=== PATIENT | male | born 1955 | race Caucasian/White ===

== ENCOUNTER 2018-12-10 08:49 | Day surgery (SDC) | payer BC ==
[~2018-12-10 08:49] MED LIST: CELECOXIB 100 MG CAPSULE PO ONE; FAMOTIDINE 20MG TABLET PO ONE; GENTAMICIN SULFATE 560 MG in 0.9 % SODIUM CHLORIDE 100ML 100 ML IV ONE; MECLIZINE 25 MG TABLET PO ONE; METOCLOPRAMIDE 10 MG TABLET PO ONE; VANCOMYCIN 1GM/200ML PREMIX 1 GM/200 ML PIGGYBACK IVPB ONE
[2018-12-10] MEDS ORDERED: ROPIVACAINE HCL (NAROPIN) /PF 5MG/ML 20ML VIAL IV ONE (08:50)
[2018-12-10] MEDS ORDERED: DEXAMETHASONE 4 MG/ML 1ML VIAL IVP ONE (08:50)
[2018-12-10] MEDS ORDERED: PROPOFOL 10 MG/ML VIAL IV ONE (08:50)
[2018-12-10] MEDS ORDERED: LIDOCAINE 2% MDV (20MG/ML) 20ML VIAL IV ONE (08:50)
[2018-12-10] MEDS ORDERED: MIDAZOLAM HCL 2MG/2ML VIAL IV ONE (08:50)
[2018-12-10] MEDS ORDERED: GENTAMICIN SULFATE 560 MG in 0.9 % SODIUM CHLORIDE 100ML 100 ML IV ONE (09:30)
[2018-12-10] MEDS ORDERED: RINGERS SOLUTION,LACTATED 1,000 ML IV ONE ×2 (09:35→12:47)
[2018-12-10 09:47] LABS: ABO GROUP A; ANTIBODY SCREEN NEGATIVE (NEGATIVE); RH TYPE POSITIVE
[2018-12-10] MEDS ORDERED: BUPIVACAINE 0.5% W/EPI MPF 30 ML VIAL SQ ONE (11:36)
[2018-12-10] MEDS ORDERED: TRANEXAMIC ACID 1,000 MG/10 ML ML IU ONE (11:36)
[2018-12-10] MEDS ORDERED: TRANEXAMIC ACID 1,000 MG/10 ML ML IV ONE (11:36)
[2018-12-10] MEDS ORDERED: DIPHENHYDRAMINE HCL 25 MG CAPSULE PO PRN (13:18)
[2018-12-10] MEDS ORDERED: ACETAMINOPHEN W/ CODEINE 300MG/60MG TABLET PO PRN ×2 (13:18)
[2018-12-10] MEDS ORDERED: AL HYDROX/MAG HYDROX 30ML UD PO PRN (13:18)
[2018-12-10] MEDS ORDERED: NALOXONE 0.4 MG/1 ML VIAL IVP PRN (13:18)
[2018-12-10] MEDS ORDERED: KETOROLAC 30 MG/ML VIAL IVP PRN (13:18)
[2018-12-10] MEDS ORDERED: HYDROCODONE/APAP 10/325 TABLET PO PRN (13:18)
[2018-12-10] MEDS ORDERED: HYDROMORPHONE HCL 2 MG/ML VIAL IM PRN (13:18)
[2018-12-10] MEDS ORDERED: ONDANSETRON HCL IV 4 MG/2 ML VIAL IVP PRN (13:18)
[2018-12-10] MEDS ORDERED: BISACODYL 10 MG SUPP RC PRN (13:18)
[2018-12-10] MEDS ORDERED: TRAMADOL HCL 50 MG TABLET PO PRN (13:18)
[2018-12-10] MEDS ORDERED: ACETAMINOPHEN 325 MG TAB PO PRN (13:18)
[2018-12-10] MEDS ORDERED: ZOLPIDEM TARTRATE 5 MG TABLET PO PRN (13:18)
[2018-12-10] MEDS ORDERED: MAGNESIUM HYDROXIDE 30 ML UDC PO PRN (13:18)
[2018-12-10] MEDS ORDERED: PANTOPRAZOLE SODIUM 40 MG TABLET PO PRN (14:29)
[2018-12-10] MEDS: POTASSIUM CHLORIDE/D5-0.9%NACL 20 MEQ/1,000 ML BAG IV SCH ×2 (14:59→22:30)
[2018-12-10] MEDS: HYDROCODONE/APAP 10/325 TABLET PO PRN ×2 (16:37→21:16)
--- NOTE | 2018-12-10 16:41 | Rehab Evaluation ---
Patient Information - Patient Information Diagnosis: L knee DJD Ordered Treatment: PT Evaluate and Treat Status: Initial Evaluation Surgery: Yes (L TKA) Date of Surgery: 12/10/18 Past Medical/Surgical Hx: PAST MEDICAL/SURGICAL HISTORY Past Surgical History BILAT CATARACT EXTRACTION HEMORRHOIDECTOMY X'S 3 ORIF RIGHT ANKLE C SCOPES PMH - Respiratory Hx Respiratory Disorders Yes Hx Sleep Apnea Yes Hx of CPAP Yes PMH - Cardiovascular Hx Cardiovascular Disorders Yes Hx Chest Pain Yes: HX OF NOTHING RECENT HAS ALWAYS BEEN DX'D GERD Hx Hypertension Yes: HX OF NO MEDS NOW Exercise Tolerance Fair PMH - Neuro Hx Neurological Disorders Yes Hx Headaches Yes Comment: DOUBLE VISION SINCE CATARACT REMOVAL CT SCAN PMH - GI Hx Gastrointestinal Disorders Yes Hx Gastroesophageal Reflux Yes: TAKES PRILOSEC OCCASS. Hx Liver Disease Yes: FATTY LIVER PMH - Hx Genitourinary Disorders Yes Hx Kidney Stones Yes: HX OF PMH - Endocrine Hx Endocrine Disorders Yes Hx Diabetes Yes: DX'D 2016 Hx of NIDDM Yes Comment: A1C 6 PMH - Musculoskeletal Hx Musculoskeletal Disorders Yes Hx Arthritis Yes: LEFT KNEE PMH - Psych Hx Psychiatric Problems Yes Hx Anxiety Yes Hx Depression Yes PMH - Hematology/Oncology Hx Hematology/Oncology No Disorders Premorbid Status: Detail (The patient was independent with mobility prior to surgery.) Social History: Detail (The patient lives with spouse in a two story house with 12 steps with one handrail in between floors.The patient's bedroom and bathroom are on the second floor. Two steps without a handrail are present in the garage house enterance. The bathroom is equipped with : walk in shower with a bench, elevated toilet. No grab bars are present in the bathroom. The patient has a walker with wheels, crutches and a single point cane.) Precautions: [place], Fall, Other (WBAT on the L LE) - Time With Patient Total Time Spent With Patient (Min): 30 Treatment Procedures: Detail (Initial Evaluation, gait training) Subjective Information - Subjective Information Per Patient (The patient had no complaints of knee pain but did complain of pressure in abdominal region.) Objective Data - Mental Status Patient Orientation: Oriented x3 - Visual Perception Appears within normal limits for therapeutic activities - ROM Not within normal limits (The patient's L knee AROM was limited s/p surgery. All other LE AROM was WNL.) - Strength/Tone Not within normal limits (The patient's LE strength was not tested s/p surgery however strength was functional.) - Bed Mobility Independent (The patient was independent with supine to and from sit transfer.) - Transfers Independent (The patient was independent with sit to and from stand transfer) - Balance Balance Sitting: Good Balance Standing: Good - Sensation Intact - Gait Detail (The patient ambulated with front wheeled walker a distance of 208 feet x 1 WBAT on the L LE with CG/supervision safety due to initial unsteadiness with ambulation.) Therapy Assessment - Therapy Assessment Detail (The patient was independent with bed mobility, transfers. The patient required CG initially with ambulation then supervision after the patient ambulated 100 feet. The patient's walker was readjusted due to slight slate of front walker legs which may have contributed to initial unsteadiness with ambulation.) Problem List - Problem List Physical Therapy Problem List: Detail (Decreased L knee AROM and L LE strength) Goals - Goals Physical Therapy Goals: 1) The patient will ambulate independently household distances with front wheeled walker WBAT on the L LE. 2) The patient will ambulate on stairs with supervision for safety and using proper technique. 3) The patient will be independent with TKA HEP. Prognosis - Prognosis Good Plan - Plan Physical Therapy Plan: PT 1-2 sessions for gait training on levels and stairs and instruction in TKA HEP.
[2018-12-10] MEDS: DOCUSATE SODIUM 100 MG CAPSULE PO SCH (21:16)
[2018-12-10] MEDS: VANCOMYCIN 1GM/200ML PREMIX 1 GM/200 ML PIGGYBACK IVPB SCH (21:17)
[2018-12-11] MEDS: POTASSIUM CHLORIDE/D5-0.9%NACL 20 MEQ/1,000 ML BAG IV SCH (06:19)
[2018-12-11 07:07] LABS: HEMATOCRIT 42.9 % (42.0-52.0)
[2018-12-11 07:20] LABS: BLOOD UREA NITROGEN 16 mg/dL (8-23); CREATININE 0.7 mg/dL (0.7-1.2); EST GLOMERULAR FILTRATION RATE > 60 mL/min; GLUCOSE,RANDOM 136 mg/dL (74-109)
--- NOTE | 2018-12-11 07:58 | Physical Therapy Tx Note ---
Physical Therapy Tx Note - Treatment Note Tolerated: Good Total Time Spent With Patient: 25 Physical Therapy Tx Note: Detail (The patient was in bed when PT arrived. The patient ambulated with front wheeled walker a distance of 500 feet independently WBAT on the L LE. The patient ambulated on flights of 3 stairs, 7 stairs and 3 stairs using proper technique with use of railing and std. cane independently. The patient completed TKA HEP which included: seated heel slides, supine heel slides, ankle pumps, SLR, quad sets, gluteal sets and hamstring sets. The patient was left in bed with call light within reach. The patient has met all inpt. PT goals and is discharged from inpt. PT.) Physical Therapy Problem List: Detail (Decreased L knee AROM and L LE strength) Physical Therapy Goals: 1) The patient will ambulate independently household distances with front wheeled walker WBAT on the L LE. (Goal Met). 2) The patient will ambulate on stairs with supervision for safety and using proper technique.(Goal Met). 3) The patient will be independent with TKA HEP. (Goal Met) Physical Therapy Plan: The patient is discharged from inpt. PT. The pt. will continue with Home PT.
[2018-12-11] MEDS: DOCUSATE SODIUM 100 MG CAPSULE PO SCH (09:40)
[2018-12-11] MEDS: VANCOMYCIN 1GM/200ML PREMIX 1 GM/200 ML PIGGYBACK IVPB SCH (09:45)
[2018-12-11] MEDS ORDERED: DULOXETINE HCL 30 MG CAPSULE.DR PO SCH (10:00)
[2018-12-11] MEDS ORDERED: ATORVASTATIN 20 MG TABLET PO SCH (10:00)
[2018-12-11] MEDS ORDERED: METFORMIN 500 MG TABLET PO SCH (10:00)
[2018-12-11] MEDS ORDERED: FERROUS SULFATE 325 MG TAB PO SCH (10:00)
[2018-12-11] MEDS ORDERED: RIVAROXABAN 10 MG TABLET PO SCH (10:00)
--- NOTE | 2018-12-11 10:47 | Rehab Evaluation ---
Patient Information - Patient Information Diagnosis: L knee DJD Ordered Treatment: OT Evaluate and Treat Status: Initial Evaluation Surgery: Yes (L TKA) Date of Surgery: 12/10/18 Past Medical/Surgical Hx: PAST MEDICAL/SURGICAL HISTORY Past Surgical History BILAT CATARACT EXTRACTION HEMORRHOIDECTOMY X'S 3 ORIF RIGHT ANKLE C SCOPES PMH - Respiratory Hx Respiratory Disorders Yes Hx Sleep Apnea Yes Hx of CPAP Yes PMH - Cardiovascular Hx Cardiovascular Disorders Yes Hx Chest Pain Yes: HX OF NOTHING RECENT HAS ALWAYS BEEN DX'D GERD Hx Hypertension Yes: HX OF NO MEDS NOW Exercise Tolerance Fair PMH - Neuro Hx Neurological Disorders Yes Hx Headaches Yes Comment: DOUBLE VISION SINCE CATARACT REMOVAL CT SCAN PMH - GI Hx Gastrointestinal Disorders Yes Hx Gastroesophageal Reflux Yes: TAKES PRILOSEC OCCASS. Hx Liver Disease Yes: FATTY LIVER PMH - Hx Genitourinary Disorders Yes Hx Kidney Stones Yes: HX OF PMH - Endocrine Hx Endocrine Disorders Yes Hx Diabetes Yes: DX'D 2016 Hx of NIDDM Yes Comment: A1C 6 PMH - Musculoskeletal Hx Musculoskeletal Disorders Yes Hx Arthritis Yes: LEFT KNEE PMH - Psych Hx Psychiatric Problems Yes Hx Anxiety Yes Hx Depression Yes PMH - Hematology/Oncology Hx Hematology/Oncology No Disorders Premorbid Status: Detail (The patient was independent with all ADLs and functional mobility prior to surgery.) Social History: Detail (The patient lives with spouse in a two story house with 12 steps and left handrail in between floors. The patient's bedroom and bathroom are on the second floor. Two steps without a handrail are present in the garage entrance. The bathroom is equipped with a walk-in shower with a chair and an elevated toilet. No grab bars are present in the bathroom. The patient has a walker with wheels, crutches and a single point cane.) Precautions: [place], Fall, Other (WBAT on the L LE) - Time With Patient Total Time Spent With Patient (Min): 20 (1 OT eval: low complexity) Subjective Information - Subjective Information Per Patient (Pt awake in bed upon therapist arrival, ready for OT. Thigh compressions, ice, and call light in reach upon session end.) Objective Data - Pain Pain Present: Yes Pain Scale Used: Numeric (1 - 10) (3/10) - Mental Status Patient Orientation: Oriented x3 - Visual Perception Appears within normal limits for therapeutic activities - ROM Within normal limits (B UEs) - Strength/Tone Within normal limits (B UEs) - Coordination Appears within normal limits for therapeutic activities - Bed Mobility Independent (Supine to/from EOB) - Transfers Independent (Sit to/from stand EOB and std. toilet to FWW. Good balance and safe use of walker.) - Balance Balance Sitting: Good Balance Standing: Good, Fair - Sensation Intact - Gait Detail (Functional mobility household distances with FWW and within bedroom with supervision, good safety awareness, use of walker, and balance throughout.) - ADL's/IADL's Detail (OT educates Pt on modified technique to don/doff underwear, shorts, socks, shoes and Pt demos understanding at MOD I level. Instructed Pt on home and bathroom safety with use of walker. Recommended suction grab bar for fiberglass shower surround and where to obtain. Explained ami hose wearing schedule and techniques to don, Pt verbalizes understanding.) Therapy Assessment - Therapy Assessment Detail (Pt tolerates eval well and demos safety and independence with all ADLs and functional TFs.) Patient Education - Patient Education Teaching Topic: Other (modified techniques for safe and successful ADLs) Response: Return Demonstration, Verbalize Understanding Teaching Method: Discussion, Demonstration Teaching Recipient: Patient Barriers To Learning: None Problem List - Problem List Physical Therapy Problem List: Detail (Decreased L knee AROM and L LE strength) Occupational Therapy Problem List: Detail (No further skilled inpatient OT needs identified.) Goals - Goals Physical Therapy Goals: 1) The patient will ambulate independently household distances with front wheeled walker WBAT on the L LE. (Goal Met). 2) The patient will ambulate on stairs with supervision for safety and using proper technique.(Goal Met). 3) The patient will be independent with TKA HEP. (Goal Met) Occupational Therapy Goals: No further skilled inpatient OT needs/goals identified. Prognosis - Prognosis Good Plan - Plan Physical Therapy Plan: The patient is discharged from inpt. PT. The pt. will continue with Home PT. Occupational Therapy Plan: No further skilled inpatient OT needs/goals identified, ready for home DCP when medically ready. DC OT services. Thank you for this referral.
--- NOTE | 2018-12-12 14:10 | Operative Note ---
DATE OF SURGERY: 12/10/2018 PREOPERATIVE DIAGNOSIS: End-stage arthrosis of the left knee. POSTOPERATIVE DIAGNOSIS: End-stage arthrosis of the left knee. OPERATION: Cemented left total knee arthroplasty using Singh and Nephew components with a size 7 Legion Oxinium femoral component, a size 6 stemmed tibia baseplate, a 9 mm lipped highly crosslinked tibial insert, and a 35 mm all-plastic patella. STAFF SURGEON: Kunal Harrison MD ANESTHESIA: Spinal. PREPARATION: Chloraprep. INDIVIDUAL CONSIDERATIONS: None. PROCEDURE: The patient was taken to the operating room, placed supine on the operating room table. He had a successful induction of a spinal anesthetic. The left lower extremity was prepped and draped in the usual fashion. The limb was elevated and tourniquet was inflated to 250 mmHg. The patient had a midline approach to the knee. Sharp dissection carried down through skin and subcutaneous tissue. Small veins were coagulated with a Bovie. A medial arthrotomy was performed. The patella was everted and the knee was flexed. There was [id number]-vo-cyke contact medially with bone loss and some exposed bone in the notch. Fat pad was resected, ACL was sacrificed, and provisional anterior meniscectomies were performed. The capsule was released from the medial proximal tibia. The initial femoral test pilot hole was then made freehand. The intramedullary femoral cutting jig was placed. It was cut in 7.0 degrees of valgus and adjusted for rotation and secured with pins for a 10 mm resection. The initial transverse cut was then made. The skin guide was placed in the anterior and posterior cutting guides. It was found that a size 7 would be appropriate. I did place the holes in 3 degrees of external rotation. The anterior and posterior cuts followed by chamfer cuts were made. Osteophytes removed, and a size 7 trial was placed and found to fit well. The tibia was brought forward, and the remainder of the meniscal remnants removed with a Bovie. The extraarticular tibial cutting jig was placed. It was cut in neutral with a 3-degree AP slope. It was set for a 9 mm resection keyed off the high lateral side and secured with pins. When cutting the tibia, care was taken to preserve the PCL insertion on the tibia. After removing osteophytes, I could fit a size 6. It was adjusted for rotation and secured with pins. With a 9 mm trial and femoral trial, there was excellent motion and stability. Ligamentous balance and rotation alignment were thought to be normal. These trial components were removed. Prior to this, I did impact the femoral test pilot holes and the tibial keel stamp. The patient had a very thick patella and roughly 9 mm of bone was removed freehand. I could easily fit a 35 patella, and the 3 test pilot holes were drilled. The knee was then thoroughly irrigated out with pulsatile Betadine and saline to remove any visual or palpable debris. The tourniquet was let down briefly to get bleeders posteriorly and then placed back up again. Again thorough irrigation. Bony surfaces were dried. A size 6 stemmed tibia baseplate was cemented into place followed by impaction of the 9 mm lipped tibial insert followed by cementing in the size 7 Legion Oxinium femur followed by cementing in the 35 mm patella. The implant surfaces were compressed, excess cement was removed. After the cement had set, there was excellent motion and stability. Ligamentous balance, rotation alignment, and patellofemoral tracking were normal. No lateral release was required. Again thorough irrigation. Tourniquet was let down. Hemostasis was obtained with a Bovie. The skin, periosteum, and subcu were infiltrated with 30 mL of 0.5% Marcaine with epinephrine. The capsule was then closed with a running #2 quill, subcu was closed in layers with running 0 quill, skin was closed with deejay. The patient did have 1 g of tranexamic acid mixed with 30 mL of saline and this was placed into the knee through a sterile 18- gauge needle, and a sterile bulky compressive ADAMARIS-type dressing was applied. The patient tolerated the procedure well. Needle and sponge counts were correct. Estimated blood loss was minimal, and he was taken back to recovery in good condition. There were no complications. PANFILO
== END 2018-12-11 12:35 | disposition home health service (06) ==
LOC: SUR 08:49 → MEDSURG 13:40 → SUR 12-11 12:35
PROVIDERS: ATTEND Orthopaedic Surgery
DX: M17.12 Unilateral primary osteoarthritis, left knee (principal); E78.00 Pure hypercholesterolemia, unspecified; E11.9 Type 2 diabetes mellitus without complications; K21.9 Gastro-esophageal reflux disease without esophagitis; G47.33 Obstructive sleep apnea (adult) (pediatric)
CPT/HCPCS: 36416; 76942; 80048; 82948; 85014; 85018; 86850; 86900; 86901; C1776; J1580; J1885; J3370; J3480; J7120